=== PATIENT | female | born 1990 | race Asian ===

== ENCOUNTER → 2019-12-11 10:07 | Outpatient (CLI) | payer OTHER, SELFPAY ==
[2019-12-11 10:27] LABS: Specimen Label NATERA
== END ==
PROVIDERS: PCP Obstetrics & Gynecology; Referring Provider Obstetrics & Gynecology; Visit Provider Obstetrics & Gynecology
DX: Z34.01 Encounter for supervision of normal first pregnancy, first trimester (principal); Z3A.12 12 weeks gestation of pregnancy
CPT/HCPCS: 36415

== ENCOUNTER → 2020-01-06 10:56 | Outpatient (CLI) | payer OTHER, SELFPAY ==
[2020-01-06 12:31] LABS: Appearance Urine UA CLEAR; Bilirubin Urine UA NEGATIVE (NEGATIVE); Color Urine UA YELLOW; Glucose Urine UA NEGATIVE (Negative); Ketones Urine UA NEGATIVE (NEGATIVE); Leukocyte Esterase Urine UA NEGATIVE (NEGATIVE); Nitrite Urine UA NEGATIVE (Negative); Occult Blood Urine UA NEGATIVE (Negative); Protein Urine UA NEGATIVE (Negative); Urobilinogen Urine UA 0.2 E.U./dL (0.2)
[2020-01-06 12:34] LABS: Add Manual Diff / Slide Review NO; Basophils Absolute Auto 0 /uL (0-100); Basophils Percent Auto 0.5 % (0-2); Eosinophils Absolute Auto 100 /uL (0-450); Eosinophils Percent Auto 0.9 % (2-4); Hematocrit 40.7 % (36-46); Hemoglobin 13.9 g/dL (12.0-16.0); Lymphocytes Absolute Auto 1700 /uL (1100-4500); Lymphocytes Percent Auto 18.7 % (25-40); Mean Corpuscular HGB Conc 34.1 % (30-36); Mean Corpuscular Hemoglobin 29.6 PG (26-34); Mean Corpuscular Volume 86.8 fL (80-100); Monocytes Absolute Auto 400 /uL (0-900); Monocytes Percent Auto 4.5 % (3-14); Neutrophils Absolute Auto 6900 /uL (1500-7000); Neutrophils Percent Auto 75.4 % (50-75); Platelet Count 191 X10^3/uL (150-400); Red Blood Cell Count 4.69 X10^6/uL (4.0-5.2); Red Cell Distribution Width 13.7 % (11.6-14.8); White Blood Cell Count 9.2 X10^3/uL (4.5-11.0)
[2020-01-06 12:35] LABS: pH Urine UA 6.5 (4.5-8.0)
[2020-01-06 17:07] LABS: Hepatitis B Surface Antigen NEGATIVE s/c (NEGATIVE); Rubella Antibody IgG 16.1 IU/mL (>15)
[2020-01-06 17:28] LABS: HIV 1 & 2 Ab/Ag 4th Gen Combo NEGATIVE (NEGATIVE); Hep C Virus Ab w/Reflex Quant NEGATIVE s/c (NEGATIVE)
[2020-01-07 06:00] LABS: RPR Screen Non Reactive (Non Reactive)
[2020-01-07 08:19] LABS: Varicella IgG Antibody 913 index (Immune >165)
== END ==
PROVIDERS: PCP Obstetrics & Gynecology; Referring Provider Obstetrics & Gynecology; Visit Provider Obstetrics & Gynecology
DX: Z34.01 Encounter for supervision of normal first pregnancy, first trimester (principal)
CPT/HCPCS: 36415; 80055; 81003; 86787; 86803; 86850; 86900; 86901; 87077; 87086; 87389

== ENCOUNTER → 2020-01-13 10:12 | Outpatient (CLI) | payer OTHER, SELFPAY ==
[2020-01-16 13:17] LABS: AFP Value 33.5 ng/mL (.); Gest Age on Col Date 17.3 weeks (.); Insulin Dep Diabetes No (.); OSBR Risk 1IN 10000 (.); Results Report (.); Test Results *Screen Negative* (.)
== END ==
PROVIDERS: PCP Obstetrics & Gynecology; Referring Provider Obstetrics & Gynecology; Visit Provider Obstetrics & Gynecology
DX: Z34.02 Encounter for supervision of normal first pregnancy, second trimester (principal); Z3A.17 17 weeks gestation of pregnancy
CPT/HCPCS: 36415; 82105

== ENCOUNTER → 2020-02-02 09:57 | Outpatient (CLI) | payer OTHER, SELFPAY ==
--- NOTE | 2020-02-02 10:00 | DI.US.S_ITS ---
PROCEDURE: US OB >= 14 WEEKS FETUS INDICATIONS: ANATOMY OUTSIDE/PRIOR DATING DATA: Last menstrual period (LMP): 09/14/19. LMP-based estimated date of delivery (OWEN): 06/20/20. First dating scan (date and location): 02/02/20. Estimated date of delivery (OWEN) from first dating scan: 06/30/20. TECHNIQUE: Real-time scanning was performed of the fetus, with image documentation and biometric measurements. Endovaginal scanning: Not performed COMPARISON: [facility], , OB <= 14 WEEKS FETUS, 11/17/2019, 10:13. FINDINGS: General: A single living intrauterine gestation is present. Presentation: Breech. Placenta: Placental position is posterior, without previa. Amniotic fluid index: 11.9 cm, normal range is 5-24 cm. heart rate: 152 beats per minute. Maternal cervical canal: 5.2 cm long. Normal lower limit is 2.5 cm. biometrics: Biparietal diameter: 4.3 cm, 18 weeks 6 days Head circumference: 16.2 cm, 19 weeks zero days Abdominal circumference: 12.7 cm, 18 weeks 2 days Femur length: 2.9 cm, 18 weeks 5 days Estimated gestational age from initial scan: not applicable. Composite gestational age from present scan: 18 weeks 5 days Estimated weight and percentile: 246 g, 1st percentile Measurement variability for biometric dating: +/- 7 days from 14 weeks to 15 weeks 6 days gestation, +/- 10 days from 16 weeks to 21 weeks 6 days gestation, +/- 2 weeks from 22 weeks to 27 weeks 6 days gestation, +/- 3 weeks for 28 weeks gestation or later. weight reference: 4500 g or EFW >90/95% is considered macrosomia or large for gestational age. EFW <10% is small for gestational age. EFW 5% or less is considered intra-uterine growth restriction. Anatomic survey: Neuro: Ventricles are non-dilated at less than 10 mm. Cisterna magna is normal at 3-11 mm. Cerebellum is normal in size and morphology. Nuchal skin fold: Normal at less than 6 mm between 14-21 weeks gestational age. Face: Nose and lips, facial profile are normal. Spine: No evidence for spina bifida. Heart: 4-chambered heart is present, with normal ventricular outflow tracts. Diaphragm: Diaphragm is intact. Stomach: Left-sided stomach is present. Kidneys: No hydronephrosis. Normal is less than 5 mm in 2nd trimester, less than 7 mm in 3rd trimester. Cord: 3-vessel cord has orthotopic insertion. Bladder: Normal in size. Extremities: All 4 extremities identified. IMPRESSION: Single living intrauterine fetus in breech presentation Of note, growth is slightly discordant with reported LMP although within reported measurement variability for biometry. If clinically warranted, followup ultrasound study could be performed in 3-4 weeks for more definitive growth assessment. Normal anatomic survey Dictated by: Foster Wiley M.D. on 02/02/2020 at 13:32 Approved by: Foster Wiley M.D. on 02/02/2020 at 13:38
== END ==
PROVIDERS: PCP Obstetrics & Gynecology; Referring Provider Obstetrics & Gynecology; Visit Provider Obstetrics & Gynecology
DX: Z34.82 Encounter for supervision of other normal pregnancy, second trimester (principal); Z3A.18 18 weeks gestation of pregnancy
CPT/HCPCS: 76811

== ENCOUNTER → 2020-03-09 09:49 | Outpatient (CLI) | payer OTHER, SELFPAY ==
--- NOTE | 2020-03-09 09:50 | DI.US.S_ITS ---
PROCEDURE: US OB FOLLOW UP INDICATIONS: FOLLOW-UP GROWTH / DISCORDENT LMP AND EFW PERCENTILE OUTSIDE/PRIOR DATING DATA: Last menstrual period (LMP): 09/14/2019 . LMP-based estimated date of delivery (OWEN): 06/20/2020 . First dating scan (date and location): 02/02/2020 . Estimated date of delivery (OWEN) from first dating scan: 06/30/2020 . TECHNIQUE: Real-time scanning was performed of the fetus, with image documentation and biometric measurements. Endovaginal scanning: no COMPARISON: None. FINDINGS: General: A single living intrauterine gestation is present. Presentation: breech Placenta: Placental position is posterior , and low lying with the inferior margin of the placenta 9 mm above the internal cervical os. Amniotic fluid index: 11.2 cm, normal range is 5-24 cm. heart rate: 152 beats per minute. Maternal cervical canal: 4.5 cm long. Normal lower limit is 2.5 cm. biometrics: Biparietal diameter: 23 weeks 4 days Head circumference: 23 weeks 3 days Abdominal circumference: 23 weeks, 2 days Femur length: 23 weeks 3 days Estimated gestational age from initial scan: 23 weeks 6 days Composite gestational age from present scan: 23 weeks 3 days Estimated weight and percentile: 584 g; 20th percentile Measurement variability for biometric dating: +/- 7 days from 14 weeks to 15 weeks 6 days gestation, +/- 10 days from 16 weeks to 21 weeks 6 days gestation, +/- 2 weeks from 22 weeks to 27 weeks 6 days gestation, +/- 3 weeks for 28 weeks gestation or later. weight reference: 4500 g or EFW >90/95% is considered macrosomia or large for gestational age. EFW <10% is small for gestational age. EFW 5% or less is considered intra-uterine growth restriction. Other: Not applicable. IMPRESSION: 1. Single living IUP redemonstrated and interval growth is normal. 2. Low-lying placenta. Follow-up recommended. Dictated by: Janes COLE Interpreted: Mario Gross MD on 03/09/2020 at 10:38 Approved by: Mario Gross M.D. on 03/09/2020 at 11:10
== END ==
PROVIDERS: PCP Obstetrics & Gynecology; Referring Provider Obstetrics & Gynecology; Visit Provider Obstetrics & Gynecology
DX: Z36.2 Encounter for other antenatal screening follow-up (principal); O44.42 Low lying placenta NOS or without hemorrhage, second trimester; Z3A.23 23 weeks gestation of pregnancy
CPT/HCPCS: 76816

== ENCOUNTER → 2020-03-21 12:03 | Outpatient (CLI) | payer OTHER, SELFPAY ==
[2020-03-21 14:37] LABS: Hematocrit 37.1 % (36-46); Hemoglobin 12.6 g/dL (12.0-16.0)
[2020-03-21 16:36] LABS: GTT (PREG) 1 Hour PP 50gm Dose 175 mg/dL (76-139)
== END ==
PROVIDERS: Referring Provider Obstetrics & Gynecology; Visit Provider Obstetrics & Gynecology
DX: Z34.02 Encounter for supervision of normal first pregnancy, second trimester (principal); Z3A.25 25 weeks gestation of pregnancy
CPT/HCPCS: 36415; 82950; 85014; 85018

== ENCOUNTER → 2020-03-25 09:41 | Outpatient (CLI) | payer OTHER, SELFPAY ==
[2020-03-25 12:13] LABS: Glucose 1 Hour Gest 174 mg/dL (76-180)
[2020-03-25 12:19] LABS: Glucose Fasting Gestational 64 mg/dL (76-95)
[2020-03-25 13:17] LABS: Glucose Tol Interp,Gestational INTERPRETATION
[2020-03-25 13:21] LABS: Glucose 2 Hour Gest 153 mg/dL (76-155)
[2020-03-25 16:18] LABS: Glucose 3 Hour Gest 126 mg/dL (76-140)
== END ==
PROVIDERS: Referring Provider Obstetrics & Gynecology; Visit Provider Obstetrics & Gynecology
DX: O99.810 Abnormal glucose complicating pregnancy (principal)
CPT/HCPCS: 36415; 82951; 82952

== ENCOUNTER 2020-03-29 20:04 | Observation (INO) | payer OTHER, SELFPAY ==
[2020-03-29 20:43] LABS: Bacteria Urine None Seen; RBC Urine None Seen (0-5/HPF)
[2020-03-29 20:44] LABS: Appearance Urine UA CLEAR; Bilirubin Urine UA NEGATIVE (NEGATIVE); Color Urine UA YELLOW; Glucose Urine UA NEGATIVE (Negative); Ketones Urine UA NEGATIVE (NEGATIVE); Leukocyte Esterase Urine UA NEGATIVE (NEGATIVE); Nitrite Urine UA NEGATIVE (Negative); Occult Blood Urine UA NEGATIVE (Negative); Protein Urine UA NEGATIVE (Negative); Specific Gravity Urine UA <=1.005 (1.000-1.035); Urobilinogen Urine UA 0.2 E.U./dL (0.2)
[2020-03-29 20:50] LABS: Culture Indicated Urine Cult Not Indicated; Squamous Epithelial Cell Urine 0-1 /HPF (0-5/HPF); WBC Urine 0-1/HPF (0-5/HPF); pH Urine UA 6.5 (4.5-8.0)
[2020-03-29] MEDS: NIFEdipine 10 MG CAPSULE PO ×2 (21:09→21:29)
--- NOTE | 2020-03-30 07:57 | PM.OBTRLD ---
Visit Information Visit Information Date of evaluation: 03/29/20 Primary OB Provider: Bárbara Mederos On-call OB Provider: Sylvie Sandhu Reason for Evaluation: Yes pre-term labor Comments/Additional reasons for admission: Patient is a 29-year-old 1 para 0 at 28-,1/7 weeks gestation who initially presented with contractions every 4 minutes. She described the pain as constant and at a level 8-9. She received 2 doses of nifedipine and on the monitor there was just some irritability. The patient then reported the pain at a 1-2. [facility] Medical History (Updated 11/13/19 @ 12:32 by Vidhi Rodriguez RN) Forehead laceration (Acute) Impacted tooth (Acute) Infertility (Acute) PCOS (polycystic ovarian syndrome) (Acute ~2018) Surgical History (Updated 11/26/19 @ 18:48 by Deborah Cotter) Laceration (Resolved ~1991) Family History (Updated 11/26/19 @ 18:50 by Deborah Cotter) Mother Benign breast cyst in female Hyperlipidemia Hypertension Father Hyperlipidemia Hypertension Grandfather Lung cancer Brain cancer Liver cancer Grandmother Altered cardiac tissue perfusion Hypertension Hyperlipidemia History of heart disease Grandfather Unknown whether patient has any health problems Diabetes mellitus Hypertension Grandmother Diabetes mellitus Hypertension Family/Other Stroke Sister No problems noted. Family/Other No problems noted. Social History marital status: household members: spouse pets and animals: Yes (X 1 Dog) education level: college occupational status: employed current occupational exposures/hazards: No special jennifer needs: No Smoking Status: Former smoker Tobacco: How many years used: 1 second hand exposure: No alcohol intake: former substance use type: does not use Objective Labs Labs: Laboratory Results - last 24 hr 03/29/20 20:35 Urine Color Yellow Urine Appearance Clear Urine pH 6.5 Ur Specific Lee <=1.005 Urine Protein Negative Urine Glucose (UA) Negative Urine Ketones Negative Urine Occult Blood Negative Urine Nitrate Negative Urine Bilirubin Negative Urine Urobilinogen 0.2 Ur Leukocyte Esterase Negative Urine RBC None seen Urine WBC 0-1/hpf Ur Squamous Epith Cells 0-1 /hpf Urine Bacteria None seen Ur Culture Indicated? Cult not indicated Evaluation Evaluation Baseline heart rate: 140 Variability: Moderate (11-25) monitor accelerations: Present monitor decelerations: Absent Contraction Frequency (minutes): 4 Uterine Contraction Intensity: Mild Category of Tracing: I Cervical dilation (cm): 0 Cervical effacement (%): 0 Laboratory results: Laboratory Tests 03/29/20 20:35 Urine Color Yellow Urine Appearance Clear Urine pH 6.5 Ur Specific Lee <=1.005 Urine Protein Negative Urine Glucose (UA) Negative Urine Ketones Negative Urine Occult Blood Negative Urine Nitrate Negative Urine Bilirubin Negative Urine Urobilinogen 0.2 Ur Leukocyte Esterase Negative Urine RBC None seen Urine WBC 0-1/hpf Ur Squamous Epith Cells 0-1 /hpf Urine Bacteria None seen Ur Culture Indicated? Cult not indicated Diagnosis, Plan/Disposition Plan/Disposition Plan: Assessment: 29-year-old 1 para 0 at 28-,1/7 weeks gestation not in labor Plan: Discharged home Follow-up with Dr. cheryl hayes scheduled Signs and symptoms of labor reviewed OB Disposition: home
== END 2020-03-29 22:10 | disposition home or self-care (01) ==
LOC: LABOR 20:06
PROVIDERS: Admitting Provider Obstetrics & Gynecology; PCP Obstetrics & Gynecology; Referring Provider Obstetrics & Gynecology; Visit Provider Obstetrics & Gynecology
DX: O47.03 False labor before 37 completed weeks of gestation, third trimester (principal); Z3A.28 28 weeks gestation of pregnancy
CPT/HCPCS: 59025; 59050; 81001; G0378; G0379

== ENCOUNTER → 2020-05-30 11:58 | Outpatient (CLI) | payer OTHER, SELFPAY ==
[2020-05-31 14:50] LABS: Strep Grp B PCR NEG for Grp B Strep
== END ==
PROVIDERS: PCP Obstetrics & Gynecology; Visit Provider Obstetrics & Gynecology
DX: Z34.03 Encounter for supervision of normal first pregnancy, third trimester (principal); Z3A.36 36 weeks gestation of pregnancy
CPT/HCPCS: 87653

== ENCOUNTER 2020-06-06 08:46 | Outpatient (CLI) | payer OTHER, SELFPAY ==
--- NOTE | 2020-06-06 09:10 | PM.OBTRLD ---
Visit Information Visit Information Date of evaluation: 06/06/20 Primary OB Provider: Bárbara Mederos Reason for Evaluation: Yes non-stress test Comments/Additional reasons for admission: Patient sent over for decreased movement, patient uncertain if change in character or quantity of movement. No other complaints. Vital Signs Vital Signs: 114/68, HR 89 PFSH Medical History (Updated 11/13/19 @ 12:32 by Vidhi Rodriguez RN) Forehead laceration (Acute) Impacted tooth (Acute) Infertility (Acute) PCOS (polycystic ovarian syndrome) (Acute ~2018) Surgical History (Updated 11/26/19 @ 18:48 by Deborah Cotter) Laceration (Resolved ~1991) Family History (Updated 11/26/19 @ 18:50 by Deborah Cotter) Mother Benign breast cyst in female Hyperlipidemia Hypertension Father Hyperlipidemia Hypertension Grandfather Lung cancer Brain cancer Liver cancer Grandmother Altered cardiac tissue perfusion Hypertension Hyperlipidemia History of heart disease Grandfather Unknown whether patient has any health problems Diabetes mellitus Hypertension Grandmother Diabetes mellitus Hypertension Family/Other Stroke Sister No problems noted. Family/Other No problems noted. Social History marital status: household members: spouse pets and animals: Yes (X 1 Dog) education level: college occupational status: employed current occupational exposures/hazards: No special jennifer needs: No Smoking Status: Former smoker Tobacco: How many years used: 1 second hand exposure: No alcohol intake: former substance use type: does not use Review of Systems Constitutional Constitutional: Reports system reviewed and no additional complaints, except as documented Evaluation Evaluation Baseline heart rate: 140 Variability: Moderate (11-25) monitor accelerations: Present monitor decelerations: Absent Contraction Frequency (minutes): 5 Category of Tracing: Reactive Diagnosis, Plan/Disposition Plan/Disposition Plan: Home with routine precautions. OB Disposition: home
== END 2020-06-06 09:28 | disposition home or self-care (01) ==
LOC: OB 06-07 11:02
PROVIDERS: PCP Obstetrics & Gynecology; Referring Provider Obstetrics & Gynecology; Visit Provider Obstetrics & Gynecology
DX: O36.8130 Decreased fetal movements, third trimester, not applicable or unspecified (principal); Z3A.38 38 weeks gestation of pregnancy
CPT/HCPCS: 59025; G0378; G0379

== ENCOUNTER 2020-06-13 10:59 | Outpatient (CLI) | payer OTHER, SELFPAY ==
--- NOTE | 2020-06-13 17:43 | P.TNLD_ITS ---
Visit Information Visit Information Date of evaluation: 06/13/20 Primary OB Provider: Bárbara Mederos Reason for Evaluation: Yes non-stress test Comments/Additional reasons for admission: NST for testing in the setting of borderline SGA Vital Signs Vital Signs: S [facility] Medical History (Updated 11/13/19 @ 12:32 by Vidhi Rodriguez RN) Forehead laceration (Acute) Impacted tooth (Acute) Infertility (Acute) PCOS (polycystic ovarian syndrome) (Acute ~2018) Surgical History (Updated 11/26/19 @ 18:48 by Deborah Cotter) Laceration (Resolved ~1991) Family History (Updated 11/26/19 @ 18:50 by Deborah Cotter) Mother Benign breast cyst in female Hyperlipidemia Hypertension Father Hyperlipidemia Hypertension Grandfather Lung cancer Brain cancer Liver cancer Grandmother Altered cardiac tissue perfusion Hypertension Hyperlipidemia History of heart disease Grandfather Unknown whether patient has any health problems Diabetes mellitus Hypertension Grandmother Diabetes mellitus Hypertension Family/Other Stroke Sister No problems noted. Family/Other No problems noted. Social History marital status: household members: spouse pets and animals: Yes (X 1 Dog) education level: college occupational status: employed current occupational exposures/hazards: No special jennifer needs: No Smoking Status: Former smoker Tobacco: How many years used: 1 second hand exposure: No alcohol intake: former substance use type: does not use Evaluation Evaluation Baseline heart rate: 150 Variability: Average (6-10) monitor accelerations: Present monitor decelerations: Absent Category of Tracing: Reactive Diagnosis, Plan/Disposition Plan/Disposition Plan: Home with routine precautions. OB Disposition: home
== END 2020-06-13 11:50 | disposition home or self-care (01) ==
LOC: LABOR 11:32 → OB 16:29
PROVIDERS: PCP Obstetrics & Gynecology; Referring Provider Obstetrics & Gynecology; Visit Provider Obstetrics & Gynecology
DX: O36.5930 Maternal care for other known or suspected poor fetal growth, third trimester, not applicable or unspecified (principal); Z3A.39 39 weeks gestation of pregnancy
CPT/HCPCS: 59025; G0378; G0379

== ENCOUNTER 2020-06-20 15:50 | Outpatient (CLI) | payer OTHER, SELFPAY ==
--- NOTE | 2020-06-20 16:13 | P.TNLD_ITS ---
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 Vital Signs Vital Signs: 129/72 [facility] Medical History Forehead laceration (Acute) Impacted tooth (Acute) Infertility (Acute) PCOS (polycystic ovarian syndrome) (Acute ~2018) Surgical History Laceration (Resolved ~1991) Family History Mother Benign breast cyst in female Hyperlipidemia Hypertension Father Hyperlipidemia Hypertension Grandfather Lung cancer Brain cancer Liver cancer Grandmother Altered cardiac tissue perfusion Hypertension Hyperlipidemia History of heart disease Grandfather Unknown whether patient has any health problems Diabetes mellitus Hypertension Grandmother Diabetes mellitus Hypertension Family/Other Stroke Sister No problems noted. Family/Other No problems noted. Social History marital status: household members: spouse pets and animals: Yes (X 1 Dog) education level: college occupational status: employed current occupational exposures/hazards: No special jennifer needs: No Smoking Status: Former smoker Tobacco: How many years used: 1 second hand exposure: No alcohol intake: former substance use type: does not use Review of Systems Constitutional Constitutional: Reports system reviewed and no additional complaints, except as documented Exam Const General: cooperative, healthy appearing, comfortable and acute distress Evaluation Evaluation Baseline heart rate: 150 Variability: Moderate (11-25) monitor accelerations: Present monitor decelerations: Absent Category of Tracing: Reactive Diagnosis, Plan/Disposition Plan/Disposition Plan: Home with routine precautions. OB Disposition: home
== END 2020-06-20 16:26 | disposition home or self-care (01) ==
LOC: OB 06-22 08:26
PROVIDERS: PCP Obstetrics & Gynecology; Referring Provider Obstetrics & Gynecology; Visit Provider Obstetrics & Gynecology
DX: O36.5930 Maternal care for other known or suspected poor fetal growth, third trimester, not applicable or unspecified (principal); Z3A.39 39 weeks gestation of pregnancy
CPT/HCPCS: 59025; G0378; G0379

== ENCOUNTER 2020-06-23 10:17 | Observation (INO) | payer OTHER, SELFPAY ==
--- NOTE | 2020-06-23 11:03 | P.TNLD_ITS ---
Visit Information Visit Information Date of evaluation: 06/23/20 Primary OB Provider: Bárbara Mederos Reason for Evaluation: Yes non-stress test Comments/Additional reasons for admission: NST for borderline small g sammi, now 17% and thought to be constitutionally small per MF. Scheduled for IOL 06/27, no obstetric complaints today. Vital Signs Vital Signs: 113/69, HR 67 PFSH Medical History Forehead laceration (Acute) Impacted tooth (Acute) Infertility (Acute) PCOS (polycystic ovarian syndrome) (Acute ~2018) Surgical History Laceration (Resolved ~1991) Family History Mother Benign breast cyst in female Hyperlipidemia Hypertension Father Hyperlipidemia Hypertension Grandfather Lung cancer Brain cancer Liver cancer Grandmother Altered cardiac tissue perfusion Hypertension Hyperlipidemia History of heart disease Grandfather Unknown whether patient has any health problems Diabetes mellitus Hypertension Grandmother Diabetes mellitus Hypertension Family/Other Stroke Sister No problems noted. Family/Other No problems noted. Social History marital status: household members: spouse pets and animals: Yes (X 1 Dog) education level: college occupational status: employed current occupational exposures/hazards: No special jennifer needs: No Smoking Status: Former smoker Tobacco: How many years used: 1 second hand exposure: No alcohol intake: former substance use type: does not use Review of Systems Constitutional Constitutional: Reports system reviewed and no additional complaints, except as documented Evaluation Evaluation Baseline heart rate: 145 Variability: Moderate (11-25) monitor accelerations: Present monitor decelerations: Absent Contraction Frequency (minutes): 3 Uterine Contraction Intensity: Mild Category of Tracing: Reactive Comments: contractions largely asymptomatic Diagnosis, Plan/Disposition Plan/Disposition Plan: Home with routine precautions OB Disposition: home
== END 2020-06-23 11:11 | disposition home or self-care (01) ==
LOC: LABOR 10:18
PROVIDERS: Admitting Provider Obstetrics & Gynecology; PCP Obstetrics & Gynecology; Referring Provider Obstetrics & Gynecology; Visit Provider Obstetrics & Gynecology
CPT/HCPCS: 59025; G0378; G0379

== ENCOUNTER 2020-06-23 14:42 | Inpatient (IN) | payer OTHER, SELFPAY ==
[2020-06-23] MEDS: miSOPROStoL 25 MCG TABLET 50 MCG PO (16:50)
--- NOTE | 2020-06-23 16:57 | P.HPOB_ITS ---
OB HPI Date/Time Date of admission: 06/23/20 Date Patient Seen: 06/23/20 Time Patient Seen: 16:57 History of Present Condition Chief complaint: eval of labor : 1 Para: 0 Estimated Date of Delivery: 06/26/20 Estimated Gestational Age (weeks): 39 Narrative: Jeffry Bragg is a 29 year old at 39 weeks 4 days by first-trimester ultrasound, being followed in this by [facility] for initially concern for SGA now thought to be constitutionally small baby, presenting after SROM for clear fluid at 1:30 p.m. today. The patient reports that she is feeling contractions irregularly, has a small amount of bloody show but no bright red bleeding, has good movement, and has no other complaints obstetrical or otherwise. The patient's was initially complicated by of estimated weight under the 10th percentile, but as the patient was able to quit her job and get more rest, the most recent EFW was 17th percentile. The patient was recommended to be delivered at term per [facility], and she has had no other complications. Her medical, surgical, family, and social his tory are otherwise noncontributory. History of Present care: good care Dating criteria: LMP confirmed by 1st trimester US (Confirmed by you to be [facility]) Ultrasounds: normal 1st trimester US and normal mid trimester US Obstetrical complications: none Medical complications: none Preadmission Labs Blood type: A (+) positive -: Antibody screen: negative, GBS status: negative, HBsAG: negative, HIV: negative and RPR/VDLR: negative -: Chlamydia screen: not detected and Gonorrhea screen: not detected -: Rubella: immune and Varicella: immune Cell-free DNA: Normal cell free DNA, normal MSAFP Urine: Normal 1 hr GTT: 175 3 hr GTT: 1 hr (174), 2 hr (153) and 3 hr (126) Fasting blood glucose: 64 Evaluation Evaluation Baseline heart rate: 135 Variability: Moderate (11-25) monitor accelerations: Present monitor decelerations: Absent Contraction Frequency (minutes): 5 Uterine Contraction Intensity: Mild Cervical dilation (cm): 0 Cervical effacement (%): 50 station: -3 (Posterior, firm per nursing staff) Comments: Patient grossly ruptured on admission, continues to leak clear fluid [facility] Medical History Forehead laceration (Acute) Impacted tooth (Acute) Infertility (Acute) PCOS (polycystic ovarian syndrome) (Acute ~2018) Surgical History Laceration (Resolved ~1991) Family History Mother Benign breast cyst in female Hyperlipidemia Hypertension Father Hyperlipidemia Hypertension Grandfather Lung cancer Brain cancer Liver cancer Grandmother Altered cardiac tissue perfusion Hypertension Hyperlipidemia History of heart disease Grandfather Unknown whether patient has any health problems Diabetes mellitus Hypertension Grandmother Diabetes mellitus Hypertension Family/Other Stroke Sister No problems noted. Family/Other No problems noted. Social History marital status: household members: spouse pets and animals: Yes (X 1 Dog) education level: college occupational status: employed current occupational exposures/hazards: No special jennifer needs: No Smoking Status: Former smoker Tobacco: How many years used: 1 second hand exposure: No alcohol intake: former substance use type: does not use Meds Home Medications and Allergies Home Medications Medication Instructions Recorded Confirmed Type prenat.vits,mary,wiy-fqgs-amceh 1 tab PO DAILY 11/13/19 06/20/20 History Double Electric breast Pump and #1 each 04/28/20 06/20/20 Rx Supplies Allergies Allergy/AdvReac Type Severity Reaction Status Date / Time ibuprofen [From Advil] AdvReac Severe Hives : Verified 06/20/20 15:11 her twin sister has this allergy Review of Systems Constitutional Constitutional: Reports system reviewed and no additional complaints, except as documented Cardiovascular Cardiovascular: Reports system reviewed and no additional complaints, except as documented Respiratory Respiratory: Reports system reviewed and no additional complaints, except as documented Gastrointestinal Gastrointestinal: Reports system reviewed and no additional complaints, except as documented Genitourinary Genitourinary: Reports system reviewed and no additional complaints, except as documented Musculoskeletal Musculoskeletal: Reports system reviewed and no additional complaints, except as documented Neurologic Neurologic: Reports system reviewed and no additional complaints, except as documented Exam Vital Signs (past 8 hours): 117/73, HR 100 Const General: cooperative, healthy appearing, comfortable and acute distress Resp Effort & Inspection: normal respiratory effort Auscultation: clear to auscultation bilaterally Cardio Rate: regular rate Rhythm: regular rhythm GI Palpation: soft and No tender Presentation: vertex Estimated Weight (lbs): 7 Extrem General: normal to inspection Assessment and Plan Assessment and Plan Assessment and Plan narrative: This patient presents with premature rupture of membranes at term, with a closed, long, very under herbal cervix. Given her irregular contractions and her highly unfavorable cervix, she will be for 50 mcg oral Cytotec Q 4 hours until she achieves a favorable cervix. Cervical exam sh ould be deferred unless the patient becomes uncomfortable and desires pain medication, contractions increased in frequency until Cytotec cannot be safely administered, or status becomes nonreassuring. Plan to transition to Pitocin when cervix becomes favorable. - covid screen collected - GBS negative, no abx - 50 mcg oral cytotec q4 hrs - cEFM, toco - epidural on request
[2020-06-23 17:05] VITALS: BP 117/73
[2020-06-23 17:11] LABS: Add Manual Diff / Slide Review NO; Basophils Absolute Auto 0 /uL (0-100); Basophils Percent Auto 0.2 % (0-2); Eosinophils Absolute Auto 100 /uL (0-450); Eosinophils Percent Auto 0.7 % (2-4); Hematocrit 40.6 % (36-46); Hemoglobin 13.6 g/dL (12.0-16.0); Lymphocytes Absolute Auto 1500 /uL (1100-4500); Lymphocytes Percent Auto 15.3 % (25-40); Mean Corpuscular HGB Conc 33.6 % (30-36); Mean Corpuscular Hemoglobin 29.7 PG (26-34); Mean Corpuscular Volume 88.5 fL (80-100); Monocytes Absolute Auto 1000 /uL (0-900); Monocytes Percent Auto 10.2 % (3-14); Neutrophils Absolute Auto 7200 /uL (1500-7000); Neutrophils Percent Auto 73.6 % (50-75); Platelet Count 143 X10^3/uL (150-400); Red Blood Cell Count 4.58 X10^6/uL (4.0-5.2); Red Cell Distribution Width 14.9 % (11.6-14.8); White Blood Cell Count 9.8 X10^3/uL (4.5-11.0)
[2020-06-23 17:36] LABS: COVID19 -Nasal RAPID Negative (Negative)
--- NOTE | 2020-06-24 07:39 | PM.OBPNLAB ---
Date/Time Date Patient Seen: 06/24/20 Time Patient Seen: 07:39 Pain Control Pain control: tolerating well Pelvic Exam Dilation (cm): 3 Effacement (%): 100 station: -1 Amniotic membrane status: Leaking (clear fluid) Contractions Contractions on admission: regular Monitor mode: External Contraction frequency (min): 5 Contraction duration (min): 1 Contraction pattern: Regular Contraction intensity: Mild Status status: Category l Heart Rate Baseline: 140 Monitor Accelerations: Present Monitor Decelerations: Absent Monitor Variability: Moderate Assessment and Plan Plan: begin patient augmentation Comments: Patient for Pitocin augmentation
[2020-06-24] MEDS: OXYTOCIN PREMIX 30 UNIT/500 ML PLAST..BAG IV (08:50)
[2020-06-24] MEDS: LACTATED RINGERS 1,000 ML 100 ML IV (08:50)
--- NOTE | 2020-06-24 13:42 | PM.OBPNLAB ---
Date/Time Date Patient Seen: 06/24/20 Time Patient Seen: 12:42 Pain Control Pain control: epidural Pelvic Exam Dilation (cm): 5 Effacement (%): 100 station: -1 Amniotic membrane status: Ruptured (Forebag ruptured, bloody fluid) Contractions Pitocin rate (mU/min): 4 Contraction frequency (min): 3 Contraction pattern: Regular Contraction intensity: Strong/Firm Status status: Category l Heart Rate Baseline: 140 Monitor Accelerations: Present Monitor Decelerations: Absent Monitor Variability: Moderate Comments: Periods of minimal variability, reassuring features Assessment and Plan Assessment: induction ongoing Plan: continuous present management Comments: Patient in bed, now with peanut ball. No maternal or signs infection.
--- NOTE | 2020-06-24 14:52 | PM.OBPNLAB ---
Date/Time Date Patient Seen: 06/24/20 Time Patient Seen: 14:52 Pain Control Pain control: epidural Pelvic Exam Dilation (cm): 8 Effacement (%): 100 station: 0 Amniotic membrane status: Ruptured (bloody fluid) Contractions Monitor mode: External Pitocin rate (mU/min): 6 Contraction frequency (min): 2 Contraction pattern: Regular Contraction intensity: Strong/Firm Status status: Category ll Heart Rate Baseline: 145 Monitor Accelerations: Absent Monitor Decelerations: Absent Monitor Variability: Minimal Comments: + scalp stim, patient making rapid change. For repositioning, fluid bolus, O2 Assessment and Plan Assessment: induction ongoing Plan: continuous present management
[2020-06-24] MEDS: ONDANSETRON 4 MG/2 ML INJ IV (17:15)
[2020-06-24] MEDS: miSOPROStoL 200 MCG TABLET 600 MCG PR (18:00)
--- NOTE | 2020-06-24 18:34 | PM.OBPRVD ---
Labor & Delivery Delivery date: 06/24/20 Intrapartal events: Bleeding, Extended Tachycardia, Acceleration and Deceleration Cervical ripening method: per misoprostal protocol Delivery augmentation: pitocin Delivery monitor: external FHT and external uterine Route of delivery: L&D Laceration Description: Perineal - 2nd Degree and Labial (bilateral) Delivery repair: vicryl Estimated blood loss (mL): 350 Anesthesia type: Epidural Narrative: This patient is a 29-year-old out para 1 who presented at 39 weeks 4 days after premature rupture of membranes at home for clear fluid. Maternal and status were well, and she was induced with oral Cytotec given her closed cervix. She progressed to a favorable cervix and was augmented with Pitocin. She progressed to fully dilated and after 1 hour 2nd stage, was delivered of a healthy baby girl, 1 loose nuchal cord reduced at the perineum, Apgars 8 and 9. The placenta delivered spontaneously and intact shortly thereafter The shoulders delivered with ease, and a second-degree perineal and bilateral shallow labial lacerations were repaired with 3-0 Vicryl in the usual fashion. The patient had an atonic lower uterine segment, and was admitted started 1000 mg of rectal Cytotec along with 30 milliunits of Pitocin in her IV fluids. there were no other intrapartum or immediate complications. Baby Glendy Pineda: gender: Female Presentation: vertex position: Right Occiput Anterior Placenta delivery description: Spontaneous cord vessel description: Nuchal Cord (Lose) score (1 min): 8 score (5 min): 9 Plan for aftercare: Routine care
[2020-06-24] MEDS: ACETAMINOPHEN 325 MG TABLET 650 MG PO (20:29)
[2020-06-25] MEDS: ACETAMINOPHEN 325 MG TABLET 650 MG PO ×2 (02:16→12:51)
[2020-06-25] MEDS: PRENATAL VIT,CALC/IRON/FOLIC 1 TABLET 1 TAB PO (09:45)
[2020-06-25] MEDS: DOCUSATE 100 MG CAPSULE PO (09:45)
--- NOTE | 2020-06-25 10:40 | P.DS_ITS ---
Discharge Providers Provider Date of admission: 06/23/20 14:42 Discharge Date: 06/25/20 Primary care physician: Bárbara Mederos MD Consults: 06/25/20 18:43 Consult to [employer] Routine Comment: Discharge provider: Sylvie Sandhu MD Summary Hospital Course Date Patient Seen: 06/25/20 Time Patient Seen: 10:40 Procedures: Cytotec cervical ripening Pitocin induction of labor Epidural analgesia Spontaneous vaginal delivery Second-degree laceration repair Hospital Course: Patient is a 29-year-old 1 para 1 who presented on June 23, 2020 with premature rupture of membranes. Her cervix was unfavorable. She received Cytotec for cervical ripening. On June 24, 2020 she was started on Pitocin. She progressed in labor. She received an epidural for pain management. She had a spontaneous vaginal delivery with a second-degree laceration and repair. Her course was unremarkable. Peripartum Data Delivery Method: Natural Vaginal Laceration Description: Perineal - 2nd Degree and Labial Episiotomy description: None Procedures: Cytotec cervical ripening Pitocin induction of labor Epidural analgesia Spontaneous vaginal delivery Second-degree laceration repair complications: none 1: Gender: Female Disposition of : home Status at Discharge Cognitive/behavioral status at discharge: oriented Functional status at discharge: independent ambulation Overall status at discharge: patient is progressing back to baseline Time Spent with Patient Time attestation: Total time spent providing and/or coordinating discharge services: Time spent: Less than 30 minutes Objective Labs Result Diagrams: 06/23/20 16:30 Exam Vital Signs (past 8 hours): Generally: Patient lying in bed, no acute distress Fundus: Firm at U -2 Extremities: Negative Homans, no edema Discharge Plan Discharge Plan Patient Disposition: Home Provider Discharge Comment: Call with fever, chills, or bleeding vaginally more than a pad in an hour Tylenol 650 mg every 6 hours as needed for pain Discharge orders & Medications Prescriptions: Continued (DME) Double Electric breast Pump and Supplies See Rx Instructions .ROUTE .MEDSUPPLY Qty: 1 RF: 0 prenat.vits,mary,[id number] Tablet 1 tab PO DAILY RF: 0 Follow up/Referrals: Bárbara Mederos MD [Primary Care Provider] - 6 Weeks (Our office will call you on Saturday to set up the 6 week appointment) Diet/Activity/Treatments Diet: Regular Activity: Nothing in the vagina for 6 weeks. Avoid lifting more than 10 lb for 6 weeks. If you have increasing bleeding, fevers, chills, increasing pain, headaches, visual changes, nausea, trouble breathing, or any other symptoms or concerns, call or come to the emergency room. Skin/Wound/Dressing Care Report to your healthcare provider any signs of infection, such as:: chills, fever, night sweats, increased pain, unusual drainage and unusual redness Visit Report/Discharge Packet Instructions: DI for Labor and Delivery, Vaginal Discharge Data Primary Care Provider: Bárbara Mederos
[2020-06-25 14:52] VITALS: BP 113/73; PULSE 103; RESP 16; TEMP 37
== END 2020-06-25 17:45 | disposition home or self-care (01) | DRG 807 ==
PROVIDERS: Admitting Provider Obstetrics & Gynecology; PCP Obstetrics & Gynecology; Referring Provider Obstetrics & Gynecology; Visit Provider Obstetrics & Gynecology
DX: O42.12 Full-term premature rupture of membranes, onset of labor more than 24 hours following rupture (principal); Z37.0 Single live birth; Z3A.39 39 weeks gestation of pregnancy; O70.1 Second degree perineal laceration during delivery; O76 Abnormality in fetal heart rate and rhythm complicating labor and delivery; O69.81X0 Labor and delivery complicated by cord around neck, without compression, not applicable or unspecified; Z11.59 Encounter for screening for other viral diseases
CPT/HCPCS: 59025; 59050; 59400; 85025; 86850; 86900; 86901; 87635; G0378; G0379; J2405; J2590; S0191

== ENCOUNTER → 2020-08-01 11:38 | Outpatient (CLI) | payer OTHER, SELFPAY | PROVIDERS: Visit Provider Obstetrics & Gynecology | DX: R30.0 Dysuria (principal) | CPT/HCPCS: 87086 ==

== ENCOUNTER → 2020-08-12 11:32 | Outpatient (CLI) | payer OTHER, SELFPAY ==
--- NOTE | 2020-08-12 11:34 | DI.RAD.S_ITS ---
PROCEDURE: XR WRIST LT MIN 3V INDICATIONS: bilateral wrist pain TECHNIQUE: 4 views of the wrist were acquired. COMPARISON: None. FINDINGS: Bones: No fractures or dislocations. No suspicious bony lesions. Scaphoid view: No trauma to the scaphoid is found. Soft tissues: No suspicious soft tissue calcifications. IMPRESSION: Source of pain is not seen. No trauma identified. No sign of erosive arthritis. Dictated by: Rosas Bales M.D. on 08/12/2020 at 12:04 Approved by: Rosas Bales M.D. on 08/12/2020 at 12:04
--- NOTE | 2020-08-12 11:34 | DI.RAD.S_ITS ---
PROCEDURE: XR WRIST RT MIN 3V INDICATIONS: bilateral wrist pain TECHNIQUE: 4 views of the wrist were acquired. COMPARISON: None. FINDINGS: Bones: No fractures or dislocations. No suspicious bony lesions. Scaphoid view: No trauma. Soft tissues: No suspicious soft tissue calcifications. IMPRESSION: No trauma found. Source of pain on the right is not identified. No erosive or degenerative osteoarthritis found. Dictated by: Rosas Bales M.D. on 08/12/2020 at 12:04 Approved by: Rosas Bales M.D. on 08/12/2020 at 12:05
== END ==
PROVIDERS: PCP Family Medicine; Referring Provider Family Medicine; Visit Provider Family Medicine
DX: M65.4 Radial styloid tenosynovitis [de Quervain] (principal); M25.532 Pain in left wrist; M25.531 Pain in right wrist
CPT/HCPCS: 73110

== ENCOUNTER → 2020-08-24 13:01 | Outpatient (CLI) | payer OTHER, SELFPAY ==
--- NOTE | 2020-08-24 13:03 | DI.US.S_ITS ---
PROCEDURE: US PELVIC COMPLETE INDICATIONS: cramping/bleeding TECHNIQUE: Real-time scanning was performed of the pelvic organs, with image documentation. Additional endovaginal scanning was necessary due to incomplete visualization of the adnexal and endometrial structures by transabdominal scanning. COMPARISON: None. FINDINGS: Transabdominal scanning: Limited scanning through the kidneys shows no hydronephrosis. No pathologic free abdominal or pelvic fluid. Endovaginal scanning: Uterus: Uterus is normal in size at 8.8 x 5.9 x 3.8 cm cm. The endometrium measures 2-3 mm in combined thickness. Nonspecific calcifications/echogenic foci seen in the endometrial cavity. Ovaries: Right ovary measures 3.5 x 1.2 x 1.7 cm. Left ovary measures 3.0 x 1.4 x 1.5 cm. There is expected bilateral ovarian physiologic follicular change. IMPRESSION: Unremarkable examination as above Dictated by: Fsoter Wiley M.D. on 08/24/2020 at 17:34 Approved by: Foster Wiley M.D. on 08/24/2020 at 17:35
== END ==
PROVIDERS: PCP Family Medicine; Referring Provider Obstetrics & Gynecology; Visit Provider Obstetrics & Gynecology
DX: O72.2 Delayed and secondary postpartum hemorrhage (principal); R25.2 Cramp and spasm
CPT/HCPCS: 76830; 76856

== ENCOUNTER → 2021-04-26 11:57 | Outpatient (CLI) | payer OTHER, SELFPAY ==
--- NOTE | 2021-04-26 12:00 | DI.MG.S_ITS ---
BILATERAL DIGITAL DIAGNOSTIC MAMMOGRAM 3D/2D: 04/26/2021 CLINICAL: Palpable right breast lump. Baseline. No prior exams were available for comparison. The tissue of both breasts is extremely dense and heterogeneous due to , which lowers the sensitivity of mammography. No significant masses, calcifications, or other findings are seen in either breast. Specifically, no finding to correspond to the patient's 10:00 palpable abnormality. IMPRESSION: INCOMPLETE: NEEDS ADDITIONAL IMAGING EVALUATION There is no abnormality seen in the right breast to correspond with the palpable abnormality at 10 o'clock. Ultrasound is recommended for full evaluation of this area. This was performed immediately following this exam. This exam was interpreted at Station ID: [id number]. NOTE: For mammograms, a report in lay terms will be sent to the patient. Approximately 15% of breast malignancies will not be visualized mammographically. In the management of a palpable breast mass, a negative mammogram must not discourage biopsy of a clinically suspicious lesion. Electronically Signed By: Jennifer luna/:04/26/2021 12:49:53 ACR BI-RADS Category 0: Incomplete [id number]
--- NOTE | 2021-04-26 12:00 | DI.US.S_ITS ---
LIMITED ULTRASOUND OF RIGHT BREAST: 04/26/2021 CLINICAL: Palpable right breast lump x 2 mos. x 10 mos. Comparison is made to exam dated: 04/26/2021 [facility]. Ultrasound of the right breast 6-10 o'clock region was performed. Whitehead scale images of the real-time examination were reviewed. No significant abnormalities were seen sonographically in the right breast. Specifically, no finding to correspond to the patient's palpable abnormality. IMPRESSION: NEGATIVE There is no sonographic correlate to the patient's palpable abnormality and no evidence of malignancy. Screening mammography beginning at age 40 is recommended. Findings and recommendations were conveyed to the patient at time of exam. This exam was interpreted at Station ID: [id number]. Electronically Signed By: Jennifer luna/:04/26/2021 15:03:05 letter sent: Normal Exam Ultrasound BI-RADS: 1 Negative
== END ==
PROVIDERS: PCP Family Medicine; Referring Provider Registered Nurse; Visit Provider Registered Nurse
DX: N63.10 Unspecified lump in the right breast, unspecified quadrant (principal); N64.4 Mastodynia; R92.2 Inconclusive mammogram
CPT/HCPCS: 76642; 77066; G0279

== ENCOUNTER → 2022-04-05 11:05 | Outpatient (CLI) | payer OTHER, SELFPAY ==
[2022-04-05 15:25] LABS: HCG Quantitative /Beta subunit 268.1 mIU/mL
== END ==
PROVIDERS: PCP Family Medicine; Referring Provider Obstetrics & Gynecology; Visit Provider Obstetrics & Gynecology
DX: O36.80X0 Pregnancy with inconclusive fetal viability, not applicable or unspecified (principal)
CPT/HCPCS: 36415; 84702

== ENCOUNTER → 2022-04-07 11:16 | Outpatient (CLI) | payer OTHER, SELFPAY ==
[2022-04-07 12:16] LABS: HCG Quantitative /Beta subunit 567.8 mIU/mL
== END ==
PROVIDERS: PCP Family Medicine; Referring Provider Obstetrics & Gynecology; Visit Provider Obstetrics & Gynecology
DX: Z34.90 Encounter for supervision of normal pregnancy, unspecified, unspecified trimester (principal)
CPT/HCPCS: 36415; 84702

== ENCOUNTER → 2022-04-26 12:28 | Outpatient (CLI) | payer OTHER, SELFPAY ==
[2022-04-26 15:11] LABS: HCG Quantitative /Beta subunit 60 mIU/mL
== END ==
PROVIDERS: PCP Family Medicine; Referring Provider Obstetrics & Gynecology; Visit Provider Obstetrics & Gynecology
DX: O03.9 Complete or unspecified spontaneous abortion without complication (principal); Z3A.08 8 weeks gestation of pregnancy
CPT/HCPCS: 36415; 84702

== ENCOUNTER → 2022-09-05 10:09 | Outpatient (CLI) | payer OTHER, SELFPAY ==
[2022-09-05 11:43] LABS: HCG Quantitative /Beta subunit 473.8 mIU/mL
== END ==
PROVIDERS: PCP Family Medicine; Referring Provider Obstetrics & Gynecology; Visit Provider Obstetrics & Gynecology
DX: N91.2 Amenorrhea, unspecified (principal); Z87.59 Personal history of other complications of pregnancy, childbirth and the puerperium
CPT/HCPCS: 36415; 84702

== ENCOUNTER → 2022-09-07 10:42 | Outpatient (CLI) | payer OTHER, SELFPAY ==
[2022-09-07 12:35] LABS: HCG Quantitative /Beta subunit 1592.5 mIU/mL
== END ==
PROVIDERS: PCP Family Medicine; Referring Provider Obstetrics & Gynecology; Visit Provider Obstetrics & Gynecology
DX: N91.2 Amenorrhea, unspecified (principal); Z87.59 Personal history of other complications of pregnancy, childbirth and the puerperium
CPT/HCPCS: 36415; 84702

== ENCOUNTER → 2022-10-30 11:45 | Outpatient (CLI) | payer OTHER, SELFPAY ==
[2022-10-30 12:54] LABS: Add Manual Diff / Slide Review NO; Basophils Absolute Auto 0 /uL (0-100); Basophils Percent Auto 0.3 % (0-2); Eosinophils Absolute Auto 0 /uL (0-450); Eosinophils Percent Auto 0.5 % (2-4); Hematocrit 41.1 % (36-46); Hemoglobin 13.7 g/dL (12.0-16.0); Lymphocytes Absolute Auto 1700 /uL (1100-4500); Lymphocytes Percent Auto 18.9 % (25-40); Mean Corpuscular HGB Conc 33.3 % (30-36); Monocytes Absolute Auto 600 /uL (0-900); Monocytes Percent Auto 6.3 % (3-14); Neutrophils Absolute Auto 6700 /uL (1500-7000); Platelet Count 218 X10^3/uL (150-400); Red Blood Cell Count 4.72 X10^6/uL (4.0-5.2); Red Cell Distribution Width 13.6 % (11.6-14.8)
[2022-10-30 13:48] LABS: Hepatitis B Surface Antigen NEGATIVE s/c (NEGATIVE)
[2022-10-30 14:04] LABS: HIV 1 & 2 Ab/Ag 4th Gen Combo NEGATIVE (NEGATIVE); Hep C Virus Ab w/Reflex Quant NEGATIVE s/c (NEGATIVE)
[2022-10-31 07:34] LABS: Varicella IgG Antibody 782 index (Immune >165)
[2022-10-31 08:10] LABS: RPR Screen Non Reactive (Non Reactive)
== END ==
PROVIDERS: PCP Family Medicine; Referring Provider Obstetrics & Gynecology; Visit Provider Obstetrics & Gynecology
DX: Z34.81 Encounter for supervision of other normal pregnancy, first trimester (principal)
CPT/HCPCS: 36415; 80055; 86787; 86803; 86850; 86900; 86901; 87389

== ENCOUNTER → 2022-11-27 09:43 | Outpatient (CLI) | payer OTHER, SELFPAY ==
[2022-11-27 14:20] LABS: Urine N gonorrhoeae NOT DETECTED
[2022-11-27 14:33] LABS: Urine Chlamydia NOT DETECTED
== END ==
PROVIDERS: PCP Family Medicine; Visit Provider Obstetrics & Gynecology
DX: Z34.82 Encounter for supervision of other normal pregnancy, second trimester (principal); Z3A.16 16 weeks gestation of pregnancy
CPT/HCPCS: 87086; 87491; 87591

== ENCOUNTER → 2022-11-27 10:10 | Outpatient (CLI) | payer OTHER, SELFPAY ==
--- NOTE | 2022-11-27 10:11 | DI.US.S_ITS ---
PROCEDURE: US OB <= 14 WEEKS FETUS INDICATIONS: Viability Check OUTSIDE/PRIOR DATING DATA: Last menstrual period (LMP): 08/07/2022. LMP-based estimated date of delivery (OWEN): 05/14/2023. First dating scan (date and location): 10/02/2022. Estimated date of delivery (OWEN) from first dating scan: 05/14/2023. TECHNIQUE: Real-time scanning was performed of the fetus, with image documentation and biometric measurements. Endovaginal scanning: Not performed COMPARISON: [facility], , US OB >= 14 WEEKS FETUS, 11/27/2022, 9:57. [facility], , US OB <= 14 WEEKS FETUS, 10/02/2022, 11:55. FINDINGS: General: A single intrauterine gestation is present. Placenta: Placental position is anterior heart rate: No cardiac activity detected biometrics: Biparietal diameter: 2.2 cm, 13 weeks 4 days Head circumference: 9.1 cm, 14 weeks 1 day Abdominal circumference: 7.8 cm, 14 weeks 2 days Femur length: 1.3 cm, 13 weeks 5 days estimated gestational age: 16 weeks 0 days Composite gestational age from present scan: 14 weeks 0 days Generalized soft tissue edema of the fetus appears to be present IMPRESSION: Single intrauterine . No cardiac activity detected compatible with demise. We strive to produce accurate, complete, and clear reports of imaging services. To assist us in improving patient care, this report was composed using standard report templates and voice recognition software. Therefore, it may contain abnormal punctuation, insertions and/or omissions. Occasional wrong-word or sound-alike substitutions may occur. Though we review the report and make efforts to correct it, we do recommend that the report be read carefully in proper context to recognize any text inaccuracies. Dictated by: Zachary Figueroa M.D. on 11/27/2022 at 10:56 Approved by: Zachary Figueroa M.D. on 11/27/2022 at 11:04
== END ==
PROVIDERS: PCP Family Medicine; Referring Provider Obstetrics & Gynecology; Visit Provider Obstetrics & Gynecology
DX: O36.80X0 Pregnancy with inconclusive fetal viability, not applicable or unspecified (principal)
CPT/HCPCS: 76801; 87086; 87491; 87591

== ENCOUNTER → 2023-08-13 11:11 | Outpatient (CLI) | payer OTHER, SELFPAY | PROVIDERS: PCP Family Medicine; Referring Provider Obstetrics & Gynecology; Visit Provider Obstetrics & Gynecology | DX: O09.292 Supervision of pregnancy with other poor reproductive or obstetric history, second trimester (principal) | CPT/HCPCS: 36415; 88230; 88262 ==